=== PATIENT | female | born 1985 | race Caucasian/White ===

== ENCOUNTER 2022-01-15 07:19 | Emergency (ER) | payer OTHER ==
[~2022-01-15] VITALS: Ht 144.8 cm; Wt 45.0 kg
[2022-01-15] VITALS (8 sets, daily range): BP systolic 90–121; BP diastolic 47–77
[2022-01-15 08:17] LABS: URINE BILIRUBIN - DIPSTICK NEGATIVE (NEGATIVE); URINE BLOOD DIPSTICK TRACE-INTACT (NEGATIVE); URINE COLOR YELLOW; URINE GLUCOSE - DIPSTICK NEGATIVE (NEGATIVE); URINE KETONE NEGATIVE (NEGATIVE); URINE LEUK ESTERASE NEGATIVE (NEGATIVE); URINE PROTEIN - DIPSTICK NEGATIVE (NEG-TRACE); URINE SPECIFIC GRAVITY <=1.005; URINE UROBILINOGEN - DIPSTICK 0.2 E.U./dL (0.2)
[2022-01-15 08:20] LABS: URINE NITRITE - DIPSTICK NEGATIVE (Negative)
[2022-01-15 08:52] LABS: HEMATOCRIT 37.5 % (37.0-47.0); HEMOGLOBIN 12.5 g/dl (12.0-16.0); IMMATURE GRANULOCYTES 0.1 % (0.0-5.0); MEAN CELL VOLUME 97.2 fL CALC (80.0-100.0); MEAN CORPUSCULAR HGB 32.4 pG CALC (26.0-32.0); MEAN CORPUSCULAR HGB CONC 33.3 g/dL CAL (32.0-36.0); NEUT# 7.04 thou/uL (2.00-7.15); RED BLOOD COUNT 3.86 mill/uL (4.20-5.60); RED CELL DISTRI WIDTH 11.6 % (11.5-15.5)
[2022-01-15 09:11] LABS: ALBUMIN 4.3 g/dL (3.2-5.0); ALKALINE PHOSPHATASE 69 u/l (38-126); ANION GAP 18 (6-22 (CALC)); BILIRUBIN, TOTAL 0.8 mg/dL (0.0-1.4); BUN < 2 mg/dL (7-17); CARBON DIOXIDE 27 mmol/l (22-30); CHLORIDE 106 mmol/l (95-108); CREATININE 0.5 mg/dL (0.5-1.0); GFR > 60 ML/MIN (>=60 (CALC)); GFR FOR AFR.AMER. > 60 ML/MIN (>=60 (CALC)); POTASSIUM 3.7 mmol/l (3.5-5.1); SGOT/AST 28 u/l (14-36); SODIUM 147 mmol/l (137-146); TOTAL PROTEIN 7.8 g/dL (6.3-8.2)
[2022-01-15] MEDS ORDERED: KEFLEX500 MG PO (09:41)
[2022-01-15] MEDS ORDERED: CLARITIN10 M2 PO (09:41)
== END 2022-01-15 09:50 | disposition home or self-care (01) | DRG 153 ==
LOC: ED 07:19
PROVIDERS: Emergency Medicine
DX: J06.9 Acute upper respiratory infection, unspecified (principal); Z20.822 Contact with and (suspected) exposure to COVID-19

== ENCOUNTER 2022-11-25 07:13 | Emergency (ER) | payer OTHER ==
[~2022-11-25] VITALS: Ht 144.8 cm; Wt 42.2 kg
[2022-11-25] VITALS (8 sets, daily range): BP systolic 90–133; BP diastolic 55–82
[~2022-11-25 07:13] MED LIST: CLARITIN10 M2 PO; KEFLEX500 MG PO
[2022-11-25 08:04] LABS: BASO% 0.1 % (0-3); HEMATOCRIT 40.1 % (37.0-47.0); HEMOGLOBIN 13.7 g/dl (12.0-16.0); IMMATURE GRANULOCYTES 0.6 % (0.0-5.0); LYMPH% 3.9 % (15-41); MEAN CELL VOLUME 93.7 fL CALC (80.0-100.0); MEAN CORPUSCULAR HGB CONC 34.2 g/dL CAL (32.0-36.0); MONO% 3.2 % (2-13); NEUT# 7.28 thou/uL (2.00-7.15); NEUT% 92.2 % (42-76); RED BLOOD COUNT 4.28 mill/uL (4.20-5.60); RED CELL DISTRI WIDTH 11.7 % (11.5-15.5)
[2022-11-25 08:14] LABS: ALBUMIN 4.8 g/dL (3.2-5.0); ALKALINE PHOSPHATASE 60 u/l (38-126); ANION GAP 10 (6-22 (CALC)); BILIRUBIN, TOTAL 0.9 mg/dL (0.0-1.4); BUN 9 mg/dL (7-17); BUN/CREATININE RATIO 14 (12-20 (CALC)); CARBON DIOXIDE 29 mmol/l (22-30); CHLORIDE 104 mmol/l (95-108); CREATININE 0.7 mg/dL (0.5-1.0); GFR FOR AFR.AMER. > 60 ML/MIN (>=60 (CALC)); GFR OTHER RACES > 60 ML/MIN (>=60 (CALC)); LIPASE 88 u/l (23-300); POTASSIUM 3.7 mmol/l (3.5-5.1); SGOT/AST 33 u/l (14-36); TOTAL PROTEIN 8.1 g/dL (6.3-8.2)
[2022-11-25 08:15] LABS: SODIUM 139 mmol/l (137-146)
[2022-11-25] MEDS ORDERED: ZOFRAN4 MG/TAB PO (08:22)
== END 2022-11-25 09:17 | disposition home or self-care (01) | DRG 392 ==
LOC: ED 07:13
PROVIDERS: Family Medicine
DX: R11.2 Nausea with vomiting, unspecified (principal)